=== PATIENT | male | born 1975 | race Caucasian/White ===

== ENCOUNTER 2019-02-14 02:17 | Emergency (ER) | payer OTHER ==
[~2019-02-14] VITALS: Ht 190.5 cm; Wt 69.0 kg
[~2019-02-14 02:17] MED LIST: CLEOCIN HCL300 MG PO; IBUPROFEN 800800 M1 PO; PREDNISONE 20 M20 MG PO; VENTOLIN HFA 1818 GM INH
[2019-02-14 02:48] LABS: ABSOLUTE EOSINOPHILS 0.1 thou/uL (0.0-0.7); ABSOLUTE LYMPHOCYTES 1.3 thou/uL (0.8-5.3); ABSOLUTE MONOCYTES 0.8 thou/uL (0.0-1.2); ABSOLUTE NEUTROPHILS 5.5 thou/uL (1.6-8.1); BASOPHILS 0.6 %; EOSINOPHILS 1.5 %; HEMATOCRIT 34.5 % (42.0-52.0); HEMOGLOBIN 12.1 gm/dL (14.0-18.0); LYMPHOCYTES 16.8 %; MCHC 35.1 g/dL (28.0-37.0); MCV 93.9 fL (80.0-100.0); MONOCYTES 9.9 %; MPV 7.4 fl. (7.2-11.1); NUCLEATED RBCS 0 /100WBC; PLATELET COUNT* 274 thou/uL (150-400); POLYS 71.2 %; RBC 3.68 mil/uL (4.50-6.00); RDW-CV 13.2 % (10.5-14.5); WBC 7.7 thou/uL (4.0-11.0)
[2019-02-14 03:02] LABS: CALCIUM 9.1 mg/dL (8.5-10.1); CREATININE 0.8 mg/dL (0.6-1.3); POTASSIUM 3.2 mmol/L (3.5-5.1)
[2019-02-14 06:00] VITALS: BP 000/000
== END 2019-02-14 06:00 | disposition home or self-care (01) ==
LOC: M.ERS 02:17
PROVIDERS: Emergency Medicine
DX: R60.0 Localized edema (principal); J45.909 Unspecified asthma, uncomplicated; F17.210 Nicotine dependence, cigarettes, uncomplicated; Z88.0 Allergy status to penicillin

== ENCOUNTER 2019-12-13 10:45 | Emergency (ER) | payer OTHER ==
[~2019-12-13] VITALS: Ht 190.5 cm; Wt 72.6 kg
[2019-12-13 12:06] VITALS: BP 128/79
== END 2019-12-13 11:49 ==
LOC: M.ERS 10:45
DX: S93.401A Sprain of unspecified ligament of right ankle, initial encounter (principal); F17.210 Nicotine dependence, cigarettes, uncomplicated; J45.909 Unspecified asthma, uncomplicated; Z88.0 Allergy status to penicillin; X58.XXXA Exposure to other specified factors, initial encounter; Y93.89 Activity, other specified; Y92.89 Other specified places as the place of occurrence of the external cause; Y99.8 Other external cause status

== ENCOUNTER 2020-12-23 10:40 | Emergency (ER) | payer OTHER ==
[~2020-12-23] VITALS: Ht 190.5 cm; Wt 77.1 kg
[2020-12-23 11:20] VITALS: BP 132/89
== END 2020-12-23 11:21 | disposition left against medical advice (07) ==
LOC: M.ERS 10:40
DX: M79.605 Pain in left leg (principal); J45.909 Unspecified asthma, uncomplicated; F17.210 Nicotine dependence, cigarettes, uncomplicated; Z88.0 Allergy status to penicillin

== ENCOUNTER 2021-01-02 19:50 | Emergency (ER) | payer OTHER ==
[~2021-01-02] VITALS: Ht 190.5 cm; Wt 63.5 kg
[2021-01-02 21:35] VITALS: BP 146/82
== END 2021-01-02 21:35 | disposition home or self-care (01) ==
LOC: M.ERS 19:50
DX: L02.414 Cutaneous abscess of left upper limb (principal); F17.210 Nicotine dependence, cigarettes, uncomplicated; J45.909 Unspecified asthma, uncomplicated; Z59.0 Homelessness

== ENCOUNTER 2021-01-06 12:35 | Emergency (ER) | payer OTHER ==
[2021-01-06] MEDS ORDERED: DOXYCYCLINE 10100 MG PO (15:28)
== END 2021-01-06 13:04 | disposition left against medical advice (07) ==
LOC: M.ERS 12:35
DX: Z53.21 Procedure and treatment not carried out due to patient leaving prior to being seen by health care provider (principal)

== ENCOUNTER 2021-01-06 13:22 | Emergency (ER) | payer OTHER ==
[~2021-01-06] VITALS: Ht 190.5 cm; Wt 68.0 kg
[2021-01-06 14:34] LABS: ABSOLUTE EOSINOPHILS 0.1 thou/uL (0.0-0.7); ABSOLUTE MONOCYTES 0.6 thou/uL (0.0-1.2); ABSOLUTE NEUTROPHILS 2.7 thou/uL (1.6-8.1); BASOPHILS 0.9 %; EOSINOPHILS 1.4 %; HEMATOCRIT 41.8 % (42.0-52.0); HEMOGLOBIN 14.3 gm/dL (14.0-18.0); LYMPHOCYTES 36.3 %; MCH 32.2 pg (26.0-34.0); MCHC 34.2 g/dL (28.0-37.0); MCV 94.3 fL (80.0-100.0); MONOCYTES 11.2 %; MPV 7.4 fl. (7.2-11.1); NUCLEATED RBCS 0 /100WBC; PLATELET COUNT* 228 thou/uL (150-400); POLYS 50.2 %; RBC 4.43 mil/uL (4.50-6.00); RDW-CV 13.6 % (10.5-14.5); WBC 5.5 thou/uL (4.0-11.0)
[2021-01-06 14:49] LABS: CALCIUM 9.2 mg/dL (8.5-10.1); CREATININE 0.7 mg/dL (0.6-1.3); MAGNESIUM 2.1 mg/dL (1.8-2.4); POTASSIUM 4.3 mmol/L (3.5-5.1)
[2021-01-06] MEDS ORDERED: DOXYCYCLINE 10100 MG PO (15:28)
[2021-01-06 16:15] VITALS: BP 180/106
--- NOTE | 2021-01-07 10:02 | EKG ---
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 /EPI
== END 2021-01-06 16:16 | disposition home or self-care (01) ==
LOC: M.ERS 13:22
PROVIDERS: Nurse Practitioner Family
DX: S90.561A Insect bite (nonvenomous), right ankle, initial encounter (principal); R00.2 Palpitations; J45.909 Unspecified asthma, uncomplicated; F17.210 Nicotine dependence, cigarettes, uncomplicated; Z88.0 Allergy status to penicillin; W57.XXXA Bitten or stung by nonvenomous insect and other nonvenomous arthropods, initial encounter; Y93.89 Activity, other specified; Y92.89 Other specified places as the place of occurrence of the external cause; Y99.8 Other external cause status